=== PATIENT | female | born 1980 | race Caucasian/White ===

== ENCOUNTER 2017-03-16 01:47 | Emergency (ER) | payer BC, MEDICAID ==
[2017-03-16 01:55] VITALS: BP 144/97
[2017-03-16] MEDS ORDERED: Sodium Chloride 0.9% 1,000 ML IV ONE (02:01)
[2017-03-16] MEDS ORDERED: Ondansetron 4 MG/2 ML SDV IVPUSH ONE (02:05)
[2017-03-16] MEDS ORDERED: Ketorolac 30 MG/ML SDV IVPUSH ONE (02:05)
[2017-03-16] MEDS ORDERED: HYDROmorphone 2 MG/ML SDV IVPUSH ONE (02:33)
--- NOTE | 2017-03-16 04:02 | EDM.PDOC ---
ED HPI GENERAL MEDICAL PROBLEM - General Chief Complaint: Abdominal Pain Stated Complaint: ABD PAIN Time Seen by Provider: 03/16/17 01:50 Source of Information: Reports: Patient, Family History Limitations: Reports: No Limitations - History of Present Illness INITIAL COMMENTS - FREE TEXT/NARRATIVE: Patient is a 36 year old woman with a history of renal colic who had an abrupt onset of severe left lower quadrant abdominal pain sharp in nature 15 minutes prior to coming to the ED. The pain is sharp and severe and is causing nausea. She feels that it is like her kidney stone pain she has had in the past. Onset: Today Onset Date: 03/16/17 Duration: Minutes: (Severe 9/10 left lower quadrant pain 15 minutes prior to admission to ED.), Getting Worse Location: Reports: Abdomen (Left lower quadrant.) Quality: Reports: Sharp, Stabbing Severity: Severe Improves with: Reports: None Worsens with: Reports: None Context: Reports: Other (History of kidney stones. She does not have period due to ablation. She has had a tubal ligation.) Associated Symptoms: Reports: Nausea/Vomiting Left Lower Abdomen Pain Score (Numeric/FACES): 9 - Related Data Allergies Allergy/AdvReac Type Severity Reaction Status Date / Time HORSE Allergy Wheezing Uncoded 03/23/14 07:51 Home Meds: Home Meds Albuterol [Proventil HFA] 2 puff INH Q4H PRN 03/23/14 [History] Cyclobenzaprine [Flexeril] 10 mg PO BID 03/23/14 [History] Fluticasone/Salmeterol [Advair 250-50] 1 puff INH BID 03/23/14 [History] Naproxen [Naprosyn] 500 mg PO Q12HR 03/23/14 [History] Ranitidine [Zantac] 150 mg PO BID 03/23/14 [History] valACYclovir HCl [Valtrex] 500 mg PO BID PRN 03/23/14 [History] Social & Family History - Family History Family Medical History: Noncontributory - Tobacco Use Smoking Status *Q: Current Every Day Smoker Years of Tobacco use: 23 Packs/Tins Daily: 1 - Alcohol Use Days Per Week of Alcohol Use: 2 Number of Drinks Per Day: 2 Total Drinks Per Week: 4 - Recreational Drug Use Recreational Drug Use: Yes Drug Use in Last 12 Months: Yes Recreational Drug Type: Reports: Marijuana/Hashish - Living Situation & Occupation Living situation: Reports: ED ROS GENERAL - Review of Systems Review Of Systems: See Below Constitutional: Reports: Decreased Appetite HEENT: Reports: No Symptoms Respiratory: Reports: No Symptoms Cardiovascular: Reports: No Symptoms Endocrine: Reports: No Symptoms GI/Abdominal: Reports: Abdominal Pain (LLQ) : Reports: No Symptoms Musculoskeletal: Reports: No Symptoms Skin: Reports: No Symptoms Neurological: Reports: No Symptoms Psychiatric: Reports: No Symptoms Hematologic/Lymphatic: Reports: No Symptoms Immunologic: Reports: No Symptoms ED EXAM, GI/ABD - Physical Exam Exam: See Below Exam Limited By: No Limitations General Appearance: Alert, WD/WN, No Apparent Distress Eyes: Bilateral: Normal Appearance, EOMI Ears: Normal External Exam, Normal Canal, Hearing Grossly Normal, Normal TMs Nose: Normal Inspection, Normal Mucosa, No Blood Throat/Mouth: Normal Inspection, Normal Lips, Normal Teeth, Normal Gums, Normal Oropharynx, Normal Voice, No Airway Compromise Head: Atraumatic, Normocephalic Neck: Normal Inspection, Supple, Non-Tender, Full Range of Motion Respiratory/Chest: No Respiratory Distress, Lungs Clear, Normal Breath Sounds, No Accessory Muscle Use, Chest Non-Tender Cardiovascular: Normal Peripheral Pulses, Regular Rate, Rhythm, No Edema, No Gallop, No JVD, No Murmur, No Rub GI/Abdominal: Normal Bowel Sounds, Soft, Non-Tender, No Organomegaly, No Distention, No Abnormal Bruit, No Mass (Female) Exam: Deferred Back Exam: Normal Inspection, Full Range of Motion, NT Extremities: Normal Inspection, Normal Range of Motion, Non-Tender, Normal Capillary Refill, No Pedal Edema Neurological: Alert, Oriented, CN II-XII Intact, Normal Cognition, Normal Gait, Normal Reflexes, No Motor/Sensory Deficits Psychiatric: Normal Affect, Normal Mood Skin Exam: Warm, Dry, Intact, Normal Color, No Rash Lymphatic: No Adenopathy Course - Vital Signs Text/Narrative:: Uneventful ED course. 30 mg of IV Toradol, 4 mg of IV Zofran and 1 mg of IV Dilaudid coupled with 1000 ml bolus of normal saline caused her pain to drop to 9/10. After the negative lab results and the CT showed a ruptured ovarian cyst she wanted to go home to rest. Last Recorded V/S: Last Vital Signs Temp 36.5 C 03/16/17 01:49 Pulse 101 H 03/16/17 01:49 Resp 22 H 03/16/17 01:49 BP 144/97 H 03/16/17 01:49 Pulse Ox 98 03/16/17 01:49 - Orders/Labs/Meds Orders: Active Orders 24 hr Category Date Time Status Abdomen Pelvis wo Cont [CT] Stat Exams 03/16/17 02:22 Taken Labs: Laboratory Tests 03/16/17 03/16/17 03/16/17 Range/Units 02:15 02:15 02:50 WBC 14.0 H (4.5-12.0) X10-3/uL RBC 4.55 (3.23-5.20) x10(6)uL Hgb 14.3 (11.5-15.5) g/dL Hct 42.6 (30.0-51.3) % MCV 93.6 (80-96) fL MCH 31.4 (27.7-33.6) pg MCHC 33.6 (32.2-35.4) g/dL RDW 12.4 (11.5-15.5) % Plt Count 359 (125-369) X10(3)uL MPV 7.9 (7.4-10.4) fL Neut % (Auto) 54.8 (46-82) % Lymph % (Auto) 32.1 (13-37) % [place] % (Auto) 7.8 (4-12) % Eos % (Auto) 4 (1.0-5.0) % Baso % (Auto) 1 (0-2) % Neut # (Auto) 7.6 (1.6-8.3) # Lymph # (Auto) 4.5 (0.6-5.0) # [place] # (Auto) 1.1 (0.0-1.3) # Eos # (Auto) 0.6 (0.0-0.8) # Baso # (Auto) 0.2 (0.0-0.2) # Sodium 138 (135-145) mmol/L Potassium 3.6 (3.5-5.3) mmol/L Chloride 107 (100-110) mmol/L Carbon Dioxide 24 (23-29) mmol/L BUN 12 (5-20) mg/dL Creatinine 0.8 (0.6-1.3) mg/dL Est Cr Clr Drug Dosing 72.65 mL/min Estimated GFR (MDRD) > 60 (>60) BUN/Creatinine Ratio 15.0 (9-20) Glucose 99 (80-116) mg/dL Calcium 8.7 (8.6-10.2) mg/dL Total Bilirubin 0.3 (0.1-1.3) mg/dL AST 20 (5-27) IU/L ALT 21 (14-26) IU/L Alkaline Phosphatase 83 (56-112) IU/L Total Protein 7.0 (6.0-8.0) g/dL Albumin 4.1 (3.5-5.2) g/dL Globulin 2.9 g/dL Albumin/Globulin Ratio 1.4 Urine Color Yellow (YELLOW) Urine Appearance Slightly cloudy (CLEAR) Urine pH 6.0 (5.0-6.5) Ur Specific [place] 1.025 (1.010-1.025) Urine Protein Negative (NEGATIVE) mg/dL Urine Glucose (UA) Normal (NEGATIVE) mg/dL Urine Ketones Negative (NEGATIVE) mg/dL Urine Occult Blood Moderate H (NEGATIVE) Urine Nitrite Negative (NEGATIVE) Urine Bilirubin Negative (NEGATIVE) Urine Urobilinogen Normal (NEGATIVE) mg/dL Ur Leukocyte Esterase Negative (NEGATIVE) Urine RBC 5-10 (0) Urine WBC 0-5 (0) Ur Squamous Epith Cells Few H (NS,R,O) Urine Bacteria Few H (NS) Meds: Medications Discontinued Medications Generic Name Dose Route Start Last Admin Trade Name Freq PRN Reason Stop Dose Admin Hydromorphone HCl 1 mg 03/16/17 02:33 03/16/17 02:42 Dilaudid IVPUSH 03/16/17 02:34 1 mg ONETIME ONE Administration Sodium Chloride 1,000 mls @ 0 mls/hr 03/16/17 02:01 03/16/17 02:12 Normal Saline IV 03/16/17 02:02 999 mls/hr .BOLUS ONE Administration KVO Ketorolac Tromethamine 30 mg 03/16/17 02:05 03/16/17 02:12 Toradol IVPUSH 03/16/17 02:06 30 mg Q6H ONE Administration Ondansetron HCl 4 mg 03/16/17 02:05 03/16/17 02:12 Zofran IVPUSH 03/16/17 02:06 4 mg ONETIME ONE Administration Departure - Departure Time of Disposition: 04:06 Disposition: Home, Self-Care 01 Condition: Good Clinical Impression: Ruptured ovarian cyst - Discharge Information Instructions: Abdominal Pain, Adult, [id number] Forms: ED Department Discharge Additional Instructions: Take Naproxen 500 mg orally two times a day and tylenol 500 mg orally every 4 hours, push fluids, rest and recheck here or with PCP if pain persists or returns as it was. - My Orders Last 24 Hours: My Active Orders 03/16/17 02:22 Abdomen Pelvis wo Cont [CT] Stat - Assessment/Plan Last 24 Hours: My Active Orders 03/16/17 02:22 Abdomen Pelvis wo Cont [CT] Stat
== END 2017-03-16 04:15 | disposition home or self-care (01) ==
LOC: FB.ED 01:47
DX: N83.299 Other ovarian cyst, unspecified side (principal); Z87.442 Personal history of urinary calculi; Z98.51 Tubal ligation status; F17.210 Nicotine dependence, cigarettes, uncomplicated; F12.90 Cannabis use, unspecified, uncomplicated; Z79.899 Other long term (current) drug therapy; Z79.1 Long term (current) use of non-steroidal anti-inflammatories (NSAID); R63.0 Anorexia; Z91.048 Other nonmedicinal substance allergy status
CPT/HCPCS: 36415; 74176; 80053; 81001; 85025; 96361; 96374; 96375; 99284; J1170; J1885; J2405; J7040